=== PATIENT | female | born 1985 | race Caucasian/White ===

== ENCOUNTER → 2018-01-09 | Outpatient (CLI) | payer OTHER ==
--- NOTE | 2018-01-09 12:06 | DIAGNOSTIC IMAGING REPORT ---
ULTRASOUND LEFT LOWER QUADRANT ABDOMEN CLINICAL HISTORY: Left lower quadrant abdominal pain. COMPARISON STUDY: Abdominal CT dated 07/02/2013. FINDINGS: Real-time, grayscale, and color flow sonography of the left lower quadrant is performed at the indicated site of interest. No sonographic abnormality is seen in the left lower quadrant. No mass or fluid collection is identified. Small ovarian follicles are incidentally noted. Normal Doppler waveforms are present in the left ovary. IMPRESSION: No acute sonographic abnormality is identified in the left lower quadrant at the indicated site of interest. Electronically signed by: Ovidio Paredes M.D. 01/09/2018 12:04 PM Dictated Date/Time: 01/09/2018 12:03 PM
== END | disposition home or self-care (01) ==
LOC: C.ULTR 11:35
PROVIDERS: ATTEND Nurse Practitioner Family
DX: R10.814 Left lower quadrant abdominal tenderness (principal)